=== PATIENT | male | born 1970 | race Caucasian/White ===

== ENCOUNTER 2017-09-09 11:00 | Day surgery (SDC) | payer BC ==
[2017-09-08 10:12] VITALS: BMI 46.0
[~2017-09-09 11:00] MED LIST: LACTATED RINGERS 1,000 ML IV SCH; LIDOCAINE 1% 20 ML VIAL (10MG/ML) FOR IV START INTRADERMA PRN
[2017-09-09 11:25] VITALS: TEMP 97.3
[2017-09-09] MEDS ORDERED: LIDOCAINE 1% INJ 10MG/ML (20 ML MDV) ONE (11:29)
[2017-09-09] MEDS ORDERED: PROPOFOL 10 MG/ML 20 ML VIAL IV ONE (11:29)
[2017-09-09] MEDS ORDERED: GLYCOPYRROLATE 0.2 MG/ML 2 ML VIAL ONE (11:29)
[2017-09-09] MEDS ORDERED: fentaNYL (PF) 50 MCG/ML 2 ML AMP ONE (11:29)
[2017-09-09] MEDS ORDERED: MIDAZOLAM 2 MG/2 ML VIAL ONE (11:29)
--- NOTE | 2017-09-09 11:32 | P.GSHP ---
History of Present Illness H&P Date: 09/09/17 Chief Complaint: GERD, presurgical Patient here today for upper endoscopy. The patient has a history of reflux. Tentatively scheduled for sleeve gastrectomy in the next several weeks. No dysphagia. Past Medical History Past Medical History: GERD/Reflux, Hyperlipidemia Additional Past Medical History / Comment(s): occ irregular heartbeat, History of Any Multi-Drug Resistant Organisms: None Reported Past Surgical History: Adenoidectomy, Orthopedic Surgery, Tonsillectomy Additional Past Surgical History / Comment(s): left ring finger surgery, oral surgery Past Anesthesia/Blood Transfusion Reactions: Motion Sickness, Postoperative Nausea & Vomiting (PONV) Smoking Status: Never smoker - Past Family History Father Family Medical History: Cancer Medications and Allergies Home Medications Medication Instructions Recorded Confirmed Type Lansoprazole [Prevacid] 30 mg PO DAILY 04/05/17 09/08/17 History Olopatadine HCl [Patanase] 2 puff NASAL DAILY 04/05/17 09/08/17 History Atorvastatin [Lipitor] 10 mg PO HS 09/08/17 09/08/17 History Allergies Allergy/AdvReac Type Severity Reaction Status Date / Time acetaminophen [From Vicodin] AdvReac Nausea Verified 09/09/17 11:21 hydrocodone [From Vicodin] AdvReac Nausea Verified 09/09/17 11:21 Surgical - Exam Vital Signs Temp Pulse BP Pulse Ox 97.3 F L 99 137/93 96 09/09/17 11:23 09/09/17 11:23 09/09/17 11:23 09/09/17 11:23 Physical exam: General: Well-developed, well-nourished HEENT: Normocephalic, sclerae nonicteric Abdomen: Nontender, nondistended Extremities: No edema Neuro: Alert and oriented Assessment and Plan (1) GERD (gastroesophageal reflux disease) Narrative/Plan: Will proceed with upper endoscopy at this time. Current Visit: Yes Status: Acute Code(s): K21.9 - GASTRO-ESOPHAGEAL REFLUX DISEASE WITHOUT ESOPHAGITIS SNOMED Code(s): 970886787
--- NOTE | 2017-09-09 11:39 | P.PCN ---
Date of Procedure: 09/09/17 Procedure(s) Performed: Preoperative Dx: GERD, presurgical Postoperative Dx: Mild gastritis Procedure: EGD with Bx Anesthesia: Sedation Endoscopist: Dr. Duran Specimens: Antrum Endoscopic Procedure: The patient was on the endoscopy table in the left decubitus position. The Olympus gastroscope was inserted into the oropharynx and passed under direct visualization to the region of the third portion of the duodenum. From that point the scope was slowly withdrawn inspecting all surfaces carefully. There were no neoplastic inflammatory or polypoid lesions throughout the duodenum. The pylorus was widely patent. The stomach was carefully inspected. There was mild gastritis present. A biopsy of the antrum took place to rule out H. pylori. Retroflexion revealed a normal hiatus. The esophagus was then carefully examined. There were no neoplastic inflammatory or polypoid lesions throughout the visualized esophagus. The patient was then taken to the recovery room in stable condition per anesthesia guidelines. Recommendations: Continue antiacids. Await biopsy results. Follow up in the bariatric clinic in 2 weeks.
[2017-09-09 11:46] VITALS: RESP 18
[2017-09-09 12:03] VITALS: BP 123/74; PULSE 90
== END 2017-09-09 12:33 | disposition home or self-care (01) ==
LOC: ORWHC2ENDO 11:00
PROVIDERS: ATTEND Surgery
DX: K29.70 Gastritis, unspecified, without bleeding (principal); K21.9 Gastro-esophageal reflux disease without esophagitis; E78.5 Hyperlipidemia, unspecified; G47.33 Obstructive sleep apnea (adult) (pediatric); Z79.899 Other long term (current) drug therapy
CPT/HCPCS: 88305; 43239; J2250; J2001; J3010; J2704

== ENCOUNTER → 2017-09-12 | Outpatient (CLI) | payer BC ==
[2017-09-12 15:24] VITALS: BMI 46.0
== END ==
LOC: BARWHC3 08:06
PROVIDERS: ATTEND Surgery
DX: E66.01 Morbid (severe) obesity due to excess calories (principal)
CPT/HCPCS: 97804

== ENCOUNTER → 2017-09-20 | Outpatient (CLI) | payer BC ==
[2017-09-20 14:11] VITALS: RESP 16; BMI 45.2
--- NOTE | 2017-09-20 16:46 | P.BASOAP ---
Subjective Progress Note Date: 09/20/17 Principal diagnosis: Morbid obesity Patient doing well today. Underwent recent upper endoscopy as a preoperative study. Still with reflux. Denies vomiting. He is hoping to have his sleep gastrectomy scheduled him the next 3-5 weeks. Objective - Vital Signs Vital signs: Vital Signs Temp Pulse Resp 16 09/20/17 13:54 BP Pulse Ox Intake & Output 09/19/17 09/20/17 09/20/17 18:59 06:59 18:59 Weight 132.903 kg - Exam Abdomen: Soft, nontender, nondistended Assessment/Plan (1) Morbid obesity Narrative/Plan: Recent upper endoscopy reviewed. Patient appears to be ready to schedule his sleeve gastrectomy. Surgical consent form and the associated risks were reviewed in detail again today. All questions answered. We'll provided date to the patient in the next few days. Plan: Date: 09/20/17 Initial Weight: 129.387 kg Initial BMI: 44.0 Current Weight: 132.903 kg Current BMI: 45.2 Type of Surgery: Total Volume in Band: Previous Volume: Volume Removed: Volume Added: Band Size:
== END | disposition home or self-care (01) ==
LOC: BARWHC3 13:19
PROVIDERS: ATTEND Surgery
DX: E66.01 Morbid (severe) obesity due to excess calories (principal); Z68.42 Body mass index [BMI] 45.0-49.9, adult; Z71.3 Dietary counseling and surveillance
CPT/HCPCS: 99211

== ENCOUNTER 2017-10-31 10:47 | Inpatient (IN) | payer BC ==
[~2017-10-31 10:47] MED LIST changes: +DEXAMETHASONE SOD PHOSPHATE 10 MG/ML 1 ML VIAL IV ONE; +ENOXAPARIN 40 MG/0.4 ML SYRINGE SQ ONE; -LACTATED RINGERS 1,000 ML IV SCH; +MIDAZOLAM 2 MG/2 ML VIAL IV PRN; +ONDANSETRON ODT 4 MG TAB PO ONE; +SCOPOLAMINE 1.5MG/72HR PATCH TRANSDERM ONE; +fentaNYL (PF) 50 MCG/ML 2 ML AMP IV PRN
[2017-10-31] MEDS: LACTATED RINGERS 1,000 ML IV SCH (11:45)
--- NOTE | 2017-10-31 13:26 | P.ONQ ---
Anesthesiology Proc Note - PNB - Peripheral Nerve Block Performed Bilateral Transversus Abdominis Single Time Out Performed: Yes Procedure Start Time: 12:46 Procedure Stop Time: 13:01 Indication: Acute Post-Operative Pain, Requested by physician Sedation Type: Sedate with meaningful contact maintained Preparation: Sterile Prep Position: Supine Needle Size: 100mm (4") Needle Gauge: 21 Technique: Ultrasound Injectate: 0.5% Ropivacaine (see comment for volume) (ropi .5% 15cc each side) Blood Aspirated: No Pain Paresthesia on Injection Noted: No Resistance on Injection: Normal Events: Uneventful and Well Tolerated
--- NOTE | 2017-10-31 13:53 | P.GSHP ---
History of Present Illness H&P Date: 10/31/17 Chief Complaint: morbid obesity Patient on our service. Interested in sleeve gastrectomy. Initially started seeing the patient last March. Recently had an upper endoscopy which showed mild gastritis. Patient has mild reflux. Symptoms are controlled with Prevacid. Denies any history of difficult swallowing or DVT. Not interested in lap band or gastric bypass. Patient is a nonsmoker. Past Medical History Past Medical History: GERD/Reflux, Hyperlipidemia Additional Past Medical History / Comment(s): Occ irregular heartbeat, NO TX REQUIRED. History of Any Multi-Drug Resistant Organisms: None Reported Past Surgical History: Adenoidectomy, Orthopedic Surgery, Tonsillectomy Additional Past Surgical History / Comment(s): left ring finger surgery, oral surgery. EGD. Past Anesthesia/Blood Transfusion Reactions: Motion Sickness, Postoperative Nausea & Vomiting (PONV) Smoking Status: Never smoker - Past Family History Father Family Medical History: Cancer Medications and Allergies Home Medications Medication Instructions Recorded Confirmed Type Lansoprazole [Prevacid] 30 mg PO DAILY 04/05/17 10/31/17 History Olopatadine HCl [Patanase] 2 puff NASAL DAILY 04/05/17 10/31/17 History Atorvastatin [Lipitor] 10 mg PO HS 09/08/17 10/31/17 History Allergies Allergy/AdvReac Type Severity Reaction Status Date / Time hydrocodone [From Vicodin] AdvReac Nausea Verified 10/24/17 17:59 Surgical - Exam Vital Signs Temp Pulse Resp BP Pulse Ox 98.2 F 85 16 117/79 97 10/31/17 11:39 10/31/17 11:39 10/31/17 11:39 10/31/17 11:39 10/31/17 11:39 Physical exam: General: Well-developed, well-nourished HEENT: Normocephalic, sclerae nonicteric Abdomen: Nontender, nondistended Extremities: No edema Neuro: Alert and oriented Assessment and Plan (1) Morbid obesity Narrative/Plan: Will proceed with sleeve gastrectomy at this time. The risks of bleeding, infection, stenosis, stricture, leak, abscess, fistula formation, peritonitis, poor weight loss, reflux, vomiting, conversion to an open procedure, aborting sleeve gastrectomy, IA, PE, DVT, and were discussed. The patient understands and wishes to proceed. Current Visit: No Status: Acute Code(s): E66.01 - MORBID (SEVERE) OBESITY DUE TO EXCESS CALORIES SNOMED Code(s): 071412891
[2017-10-31] MEDS ORDERED: fentaNYL (PF) 50 MCG/ML 2 ML AMP ONE (14:02)
[2017-10-31] MEDS ORDERED: LIDOCAINE 1% INJ 10MG/ML (20 ML MDV) ONE (14:02)
[2017-10-31] MEDS ORDERED: PROPOFOL 10 MG/ML 20 ML VIAL IV ONE (14:02)
[2017-10-31] MEDS ORDERED: SUCCINYLCHOLINE CHLORIDE VIAL 200 MG/10 ML VIAL IV ONE (14:02)
[2017-10-31] MEDS ORDERED: ROPIVACAINE 5 MG/ML 30 ML VIAL ONE (14:02)
[2017-10-31] MEDS ORDERED: GLYCOPYRROLATE 0.2 MG/ML 2 ML VIAL ONE (14:02)
[2017-10-31] MEDS ORDERED: VECURONIUM 10 MG VIAL IV ONE (14:02)
[2017-10-31] MEDS ORDERED: NEOSTIGMINE 1 MG/ML 10 ML VIAL ONE (14:02)
[2017-10-31] MEDS ORDERED: MIDAZOLAM 2 MG/2 ML VIAL ONE (14:02)
[2017-10-31] MEDS ORDERED: LACTATED RINGERS 1,000 ML IV ONE (14:39)
[2017-10-31] MEDS ORDERED: BUPIVACAINE (PF) 0.25% 30 ML VIAL SQ ONE ×2 (14:45)
[2017-10-31] MEDS ORDERED: diphenhydrAMINE 50 MG/ML 1 ML VIAL IVP PRN (15:59)
[2017-10-31] MEDS ORDERED: ACETAMINOPHEN IV (For NPO) 1,000 MG in EMPTY BAG 1 BAG IVPB ONE (15:59)
[2017-10-31] MEDS ORDERED: NALOXONE 0.4 MG/ML 1 ML VIAL IV PRN (15:59)
[2017-10-31] MEDS ORDERED: MORPHINE SULFATE 4 MG/0.8 ML SYRINGE (INJ) IVP PRN (15:59)
--- NOTE | 2017-10-31 16:03 | P.OP ---
Date of Procedure: 10/31/17 Procedure(s) Performed: PREOPERATIVE DIAGNOSIS: Morbid obesity, GERD, hyperlipidemia POSTOPERATIVE DIAGNOSIS: Same PROCEDURE: Laparoscopic sleeve gastrectomy SURGEON: Renee EBL: Minimal ANESTHESIA: General COMPLICATIONS: None OPERATIVE PROCEDURE: Patient was placed in the operating table in the supine position. He was placed under general anesthesia at that time. The abdomen was prepped and draped in sterile fashion after the patient was placed in lithotomy. A 5 mm optical trocar was used to enter the abdominal cavity in the left upper quadrant. Insufflation took place to 15 millimeters mercury. An additional right subxiphoid 5 mm trocar was then placed under direct visualization and then removed. 2 additional 5 mm trochars were placed in the right upper quadrant and left upper quadrant under direct visualization and a 15 mm trocar in the supraumbilical location. The liver was retracted using a medium Miguel liver retractor through the right subxiphoid trocar site. The hiatus was inspected. The patient had no visible hiatal hernia At that point I moved to the mid aspect of the greater curvature the stomach. The short gastric vasculature was divided using a LigaSure device proximally. I then switched and divided the short gastrics distally to a 4 cm from the pylorus. The dissection took place up to the left diaphragmatic crura at that point. The posterior short gastrics were likewise divided using the LigaSure device. Once the stomach was fully mobilized the blunt tipped 40-Finnish bougie dilator was advanced into the stomach and advanced all the way to the prepyloric location. A black echelon 60 stapler was utilized and fired tangentially across the antrum taking care to avoid narrowing at the incisura angularis. Subsequent firings of the stapler took place. The second stapler used was a additional black load 60 with seam guard. A total of 3 green echelon 60 staplers with seam guard took place proximally staying on the outer edge of our dilator. Once we reached the most proximal portion of the stomach a single firing of the gold echelon 60 stapler without seen guard took place. The oral gastric tube was reinserted. The stomach was insufflated with approximately 100 mL of methylene blue. No evidence of leak or obstruction was seen. The distal aspect of the sleeve was then reapproximated to the gastrosplenic and gastrocolic ligament using a short running 2-0 strata fix suture. This was done to prevent kinking or twisting of the sleeve. Tisseel fibrin glue was used along the entire staple line. No evidence of bleeding was seen. The stomach remnant was removed from the 15 mm trocar site without difficulty. The fascia at the 15 more site was closed using interrupted 0 Vicryl sutures with the laparoscopic suture passer and Dante Amarilis technique. The insufflation was evacuated. The skin at all 5 incisions were closed using 4-0 Monocryl sutures. Steri-Strips and sterile dressings were then applied. DISPOSITION: Stable to recovery room
[2017-10-31] MEDS ORDERED: PROMETHAZINE INJ 25 MG/ML 1 ML VIAL IVPB ONE (16:07)
[2017-10-31] MEDS: MORPHINE SULFATE 2 MG/ML SYRINGE IV PRN ×5 (16:21→17:10)
[2017-10-31] MEDS ORDERED: diphenhydrAMINE 50 MG/ML 1 ML VIAL IVP ONE (16:40)
[2017-10-31] MEDS: ALBUTEROL NEBULIZED 2.5 MG/3 ML INHALATION SCH ×2 (17:03→19:16)
[2017-10-31] MEDS ORDERED: SODIUM CHLORIDE 0.9% 1,000 ML IV ONE (17:26)
[2017-10-31] MEDS: HYOSCYAMINE ORAL DROPS 1.875 MG/15 ML BOTTLE PO PRN (18:37)
[2017-10-31] MEDS: SIMETHICONE 40 MG/0.6 ML DROPS 2,000 MG/30 ML BOTTLE PO PRN (18:37)
[2017-10-31 19:08] VITALS: BMI 43.3
--- NOTE | 2017-10-31 19:41 | CONS ---
CONSULTATION REASON FOR CONSULTATION: Advice regarding GERD and other medical issues requested by surgery, Dr. Duran. HISTORY OF PRESENT ILLNESS: This 47-year-old gentleman with a past medical history of GERD, hyperlipidemia, apparently being followed by primary physician primary in [place], in the outpatient setting underwent laparoscopic sleeve gastrectomy for morbid obesity, GERD, hyperlipidemia, by Dr. Duran. The patient tolerated the procedure. The patient is slightly drowsy at this time. There is no history any headache, loss of conscious or seizures. The patient is complaining of some postoperative chest pain at this time. Otherwise no history of headache, loss of consciousness, seizures. PAST MEDICAL HISTORY: GERD, hyperlipidemia. MEDICATIONS: Prior to admission home medications are: 1. Patanase 2 sprays daily. 2. Prevacid 30 mg daily. 3. Lipitor 10 mg. ALLERGIES: VICODIN. FAMILY HISTORY: History of cancer in the family. SOCIAL HISTORY: No history of smoking. Occasional alcohol intake. REVIEW OF SYSTEMS: ENT: No diminished vision. No diminished hearing. CARDIOVASCULAR: No angina or palpitations. Respiration: No cough or hemoptysis. GI as mentioned earlier. : No dysuria. No retention. NERVOUS SYSTEM: No numbness or weakness. Allergy/Immunology: No asthma or hayfever. MUSCULOSKELETAL: As mentioned earlier. Hematology/Oncology: No history of anemia. Endocrine: No history of diabetes. CONSTITUTIONAL: As mentioned earlier. Dermatology: Negative. Rheumatology: Negative. Psychiatric: As mentioned earlier. PHYSICAL EXAMINATION: Alert and oriented times three. Pulse 83,blood pressure 151/70, respiration 20, temperature 97 degrees, pulse ox 97% on 8 L. HEENT: Conjunctivae normal. Oral mucosa moist. Neck is no jugular venous distention. No carotid bruit. No lymph node enlargement. Cardiovascular: S1-S2 muffled. Respiratory: Breath sounds diminished in the bases. No rhonchi. No crackles. ABDOMEN: Soft, obese, status post surgery. No mass palpable. Legs: No edema. No swelling. NERVOUS SYSTEM: Higher functions as mentioned earlier. Moves all four extremities. No focal deficits. Lymphatics: No lymph nodes palpable in the neck, axillae or groin. SKIN: No ulcer, rashes or bleeding. LABS: The patient's labs are not available. ASSESSMENT: 1. Status post laparoscopic sleeve gastrectomy for morbid obesity, gastroesophageal reflux disease and hyperlipidemia. 2. Obesity. 3. Gastroesophageal reflux disease. 4. Hyperlipidemia. 5. History of degenerative joint disease. RECOMMENDATIONS AND DISCUSSION: In this 47-year-old gentleman who presented with multiple complex medical issues, we will monitor the patient closely. Continue the current medications. I would recommend resume the home medications when the patient is p.o. Otherwise, incentive spirometry and as well as DVT prophylaxis. The patient had postoperative lower chest pains, which is expected. Otherwise, we will continue to monitor. Further recommendations to follow. MMODL / IJN: [id number] /
[2017-10-31] MEDS: 0.9% NACL WITH KCL 20 MEQ/L 1,000 ML IV SCH (23:00)
[2017-11-01] MEDS: SIMETHICONE 40 MG/0.6 ML DROPS 2,000 MG/30 ML BOTTLE PO PRN (05:56)
[2017-11-01] MEDS: HYOSCYAMINE ORAL DROPS 1.875 MG/15 ML BOTTLE PO PRN (05:57)
[2017-11-01] MEDS: ALBUTEROL NEBULIZED 2.5 MG/3 ML INHALATION SCH ×4 (07:22→19:42)
[2017-11-01 07:32] LABS: Basophils % (A) 0 %; Eosinophils # (A) 0.1 k/uL (0-0.7); Eosinophils % (A) 1 %; HCT 42.2 % (39.0-53.0); HGB 13.9 gm/dL (13.0-17.5); Lymphocytes # (A) 1.3 k/uL (1.0-4.8); Lymphocytes % (A) 11 %; MCH 30.2 pg (25.0-35.0); MCV 91.4 fL (80.0-100.0); Monocytes # (A) 0.6 k/uL (0-1.0); Monocytes % (A) 5 %; Neutrophils # (A) 10.1 k/uL (1.3-7.7); Neutrophils % (A) 84 %; Platelet Count 306 k/uL (150-450); RBC 4.62 m/uL (4.30-5.90); RDW 13.8 % (11.5-15.5); WBC 12.1 k/uL (3.8-10.6)
[2017-11-01 08:08] LABS: Anion Gap 17 mmol/L; Blood Urea Nitrogen 10 mg/dL (9-20); Calcium 8.9 mg/dL (8.4-10.2); Carbon Dioxide 21 mmol/L (22-30); Chloride 102 mmol/L (98-107); Phosphorus 3.5 mg/dL (2.5-4.5); Potassium 4.8 mmol/L (3.5-5.1); Sodium 140 mmol/L (137-145)
[2017-11-01] MEDS: 0.9% NACL WITH KCL 20 MEQ/L 1,000 ML IV SCH ×2 (08:13→08:16)
[2017-11-01] MEDS: KETOROLAC 30 MG/ML 1 ML VIAL IVP SCH ×3 (08:14→21:04)
[2017-11-01] MEDS: LACTATED RINGERS 1,000 ML IV SCH (08:16)
[2017-11-01] MEDS: 1: MVI, ADULT NO.4 WITH VIT K 10 ML, THIAMINE 100 MG, FOLIC ACID 1 MG, POTASSIUM CHLORID IV SCH ×18 (08:16→21:06)
[2017-11-01] MEDS: ENOXAPARIN 40 MG/0.4 ML SYRINGE SQ SCH ×2 (08:17→21:05)
[2017-11-01] MEDS: AZELASTINE 137MCG/SPRAY NASAL SCH (08:17)
[2017-11-01] MEDS: PANTOPRAZOLE 40 MG TABLET PO SCH ×2 (08:18→09:27)
[2017-11-01] MEDS: ONDANSETRON 4 MG/2 ML VIAL IVP PRN ×2 (08:33→21:05)
[2017-11-01] MEDS ORDERED: PANTOPRAZOLE 40 MG/10 ML VIAL IV SCH (09:00)
--- NOTE | 2017-11-01 11:11 | FL ---
EXAMINATION TYPE: FL UGI DATE OF EXAM: 11/01/2017 LIMITED UGI: CLINICAL HISTORY: Morbid Obesity, gastric sleeve surgery yesterday. TECHNIQUE: Limited esophagram is performed utilizing 50 oz of Isovue-370. A total of 54 seconds of f luoroscopic time was utilized during procedure. 20 spot images were saved. COMPARISON: None. FINDINGS: The patient swallowed contrast without difficulty or delay. Esophageal peristalsis and mo tility are within normal limits. There is good flow of contrast along the diaphragmatic hiatus into proximal stomach and mild delay of proximal anastomosis into gastric sleeve. There is mild to moderat e Delay from gastric sleeve through distal anastomosis into pyloric remnant and duodenal sweep . Manjula ent remains asymptomatic. There is no evidence of contrast extravasation to suggest leak. IMPRESSION: No evidence of leak or significant obstruction status post recent gastric sleeve yesterda y.
--- NOTE | 2017-11-01 15:02 | P.PN ---
Subjective Progress Note Date: 11/01/17 Principal diagnosis: Morbid obesity Patient doing well today. Mild nausea this morning although that's improved. Today's upper GI shows no evidence of leak or obstruction. He is afebrile. White blood cell count slightly elevated. Objective - Vital Signs Vital signs: Vital Signs Temp 98.5 F 11/01/17 14:33 Pulse 61 11/01/17 14:33 Resp 16 11/01/17 14:33 BP 112/69 11/01/17 14:33 Pulse Ox 95 11/01/17 14:33 Intake & Output 10/31/17 11/01/17 11/01/17 18:59 06:59 18:59 Intake Total 2049 Output Total 160 Balance 1889 Weight 125.554 kg 125.554 kg Intake: IV 2049 Output: Urine 150 Estimated Blood Loss 10 Other: Voiding Method Toilet # Voids 1 1 - Exam Abdomen: Soft, nondistended, mild incisional tenderness, dressings clean and dry - Labs CBC & Chem 7: 11/01/17 06:55 11/01/17 06:55 Labs: Abnormal Lab Results - Last 24 Hours (Table) 11/01/17 11/01/17 Range/Units 06:55 06:55 WBC 12.1 H (3.8-10.6) k/uL Neutrophils # 10.1 H (1.3-7.7) k/uL Carbon Dioxide 21 L (22-30) mmol/L Assessment and Plan (1) Morbid obesity Narrative/Plan: Continue bariatric liquids. Repeat CBC tomorrow. Monitor tachycardia. Ambulate. Current Visit: Yes Status: Acute Code(s): E66.01 - MORBID (SEVERE) OBESITY DUE TO EXCESS CALORIES SNOMED Code(s): 737845008
[2017-11-01] MEDS: ATORVASTATIN 10 MG TAB PO SCH ×2 (21:05→21:11)
--- NOTE | 2017-11-01 21:32 | PN ---
PROGRESS NOTE DATE OF SERVICE: 11/01/2017. INTERVAL HISTORY: This 47-year-old gentleman who was admitted after laparoscopic sleeve gastrectomy is improving significantly. No chest pain. No palpitations. No fever. PHYSICAL EXAM: Alert and oriented times three. Pulse 61, blood pressure 112/69, respirations 16, temp 98.4, pulse ox 94% on room air. HEENT conjunctivae normal. Oral mucosa moist. Neck is no jugular venous distention. No carotid bruit. No lymph node enlargement. Cardiovascular system: S1, S2, no S3, no S4. RESPIRATORY: Breath sounds diminished in the bases. Scattered rhonchi. ABDOMEN: Soft, status post surgery. Legs are no edema, no swelling. LAB STUDIES: Hemoglobin 13.9. ASSESSMENT: 1. Status post laparoscopic sleeve gastrectomy for morbid obesity, gastroesophageal reflux disease, and hyperlipidemia. 2. Obesity. 3. Gastroesophageal reflux disease. 4. Hyperlipidemia. 5. History of degenerative joint disease. RECOMMENDATIONS AND DISCUSSION: Continue current medications, management and symptomatic treatment. Incentive spirometry. Increase ambulation. DVT prophylaxis. Further recommendations per surgery. Further recommendations to follow. MMODL / IJN: [id number] /
[2017-11-02] MEDS: KETOROLAC 30 MG/ML 1 ML VIAL IVP SCH ×3 (02:54→12:52)
[2017-11-02] MEDS: 0.9% NACL WITH KCL 20 MEQ/L 1,000 ML IV SCH ×3 (03:21→13:33)
[2017-11-02] MEDS: 1: MVI, ADULT NO.4 WITH VIT K 10 ML, THIAMINE 100 MG, FOLIC ACID 1 MG, POTASSIUM CHLORID IV SCH ×18 (06:31→16:15)
[2017-11-02] MEDS: LACTATED RINGERS 1,000 ML IV SCH (06:32)
[2017-11-02] MEDS: ALBUTEROL NEBULIZED 2.5 MG/3 ML INHALATION SCH ×3 (07:12→20:21)
[2017-11-02 07:22] LABS: Basophils % (A) 0 %; Eosinophils # (A) 0.1 k/uL (0-0.7); Eosinophils % (A) 1 %; HCT 39.9 % (39.0-53.0); HGB 13.9 gm/dL (13.0-17.5); Lymphocytes # (A) 1.6 k/uL (1.0-4.8); Lymphocytes % (A) 20 %; MCH 31.4 pg (25.0-35.0); MCHC 34.8 g/dL (31.0-37.0); MCV 90.2 fL (80.0-100.0); Mean Platelet Volume 6.7; Monocytes # (A) 0.4 k/uL (0-1.0); Monocytes % (A) 4 %; Neutrophils # (A) 5.9 k/uL (1.3-7.7); Neutrophils % (A) 74 %; Platelet Count 256 k/uL (150-450); RBC 4.42 m/uL (4.30-5.90); RDW 13.9 % (11.5-15.5)
[2017-11-02 07:37] LABS: Anion Gap 15 mmol/L; Blood Urea Nitrogen 7 mg/dL (9-20); Calcium 9.1 mg/dL (8.4-10.2); Carbon Dioxide 21 mmol/L (22-30); Chloride 105 mmol/L (98-107); Glucose 77 mg/dL (74-99); Potassium 4.5 mmol/L (3.5-5.1); Sodium 141 mmol/L (137-145)
[2017-11-02] MEDS ORDERED: BISACODYL 5 MG TABLET.DR PO PRN (08:00)
[2017-11-02 09:07] VITALS: RESP 16
[2017-11-02] MEDS: PANTOPRAZOLE 40 MG TABLET PO SCH (09:07)
[2017-11-02] MEDS: ENOXAPARIN 40 MG/0.4 ML SYRINGE SQ SCH (09:07)
--- NOTE | 2017-11-02 10:11 | P.PN ---
Subjective Progress Note Date: 11/02/17 Principal diagnosis: Morbid obesity Patient doing well today. Denies pain. No nausea. Tolerating liquids. He's had about 8 ounces so far this morning. He is hoping to go home later today. White blood cell count normal. Objective - Vital Signs Vital signs: Vital Signs Temp 97.7 F 11/02/17 09:06 Pulse 78 11/02/17 09:06 Resp 16 11/02/17 09:17 BP 116/68 11/02/17 09:06 Pulse Ox 94 L 11/02/17 09:06 Intake & Output 11/01/17 11/02/17 11/02/17 18:59 06:59 18:59 Weight 125.554 kg Other: Voiding Method Toilet Toilet Toilet # Voids 1 2 - Exam Abdomen: Soft, nondistended, mild incisional tenderness, incisions clean and dry - Labs CBC & Chem 7: 11/02/17 06:44 11/02/17 06:44 Labs: Abnormal Lab Results - Last 24 Hours (Table) 11/02/17 Range/Units 06:44 Carbon Dioxide 21 L (22-30) mmol/L BUN 7 L (9-20) mg/dL Assessment and Plan (1) Morbid obesity Narrative/Plan: Continue bariatric liquids. Increase protein amount. Probable discharge later today Current Visit: Yes Status: Acute Code(s): E66.01 - MORBID (SEVERE) OBESITY DUE TO EXCESS CALORIES SNOMED Code(s): 526602224
[2017-11-02] MEDS: AZELASTINE 137MCG/SPRAY NASAL SCH (12:56)
[2017-11-02 14:34] VITALS: BP 118/70; PULSE 81; TEMP 97.1
--- NOTE | 2017-11-02 21:21 | PN ---
PROGRESS NOTE DATE OF SERVICE: 11/02/2017 This 47-year-old gentleman was admitted after laparoscopic sleeve gastrectomy, is improving significantly. No chest pain. No palpitations. No fever. EXAM: Alert and oriented x3. Pulse 81, blood pressure 118/70, respirations 16, temperature 97.2, pulse ox 97% on room air. HEENT: Conjunctivae normal. NECK: No jugular venous distention. CARDIOVASCULAR: S1, S2 muffled. RESPIRATORY: Breath sounds diminished in the bases. No rhonchi. No crackles. ABDOMEN: Soft, nontender. LEGS: No edema. No swelling. NERVOUS SYSTEM: No focal deficits. LABS: CBC within normal limits. ASSESSMENT: 1. Status post laparoscopic sleeve gastrectomy for morbid obesity. 2. Gastroesophageal reflux disease. 3. Hyperlipidemia. 4. Obesity. 5. History of degenerative joint disease. RECOMMENDATIONS AND DISCUSSION: Continue current medical management and continue symptomatic treatment, incentive spirometry. Resume the home medications. DVT prophylaxis. The rest of the recommendations per Surgery and closely follow in outpatient setting. Further recommendations to follow. MMODL / IJN: [id number] /
== END 2017-11-02 19:30 | disposition home or self-care (01) | DRG 621 ==
LOC: 2ORMAIN 10:47 → 3SUR 16:21
PROVIDERS: ADMIT Surgery; ATTEND Surgery
PROC: 0DB64Z3 Excision of Stomach, Percutaneous Endoscopic Approach, Vertical (ICD-10-PCS; principal; 2017-10-31 13:00)
DX: E66.01 Morbid (severe) obesity due to excess calories (principal); E78.5 Hyperlipidemia, unspecified; K21.9 Gastro-esophageal reflux disease without esophagitis; K29.70 Gastritis, unspecified, without bleeding; M19.90 Unspecified osteoarthritis, unspecified site; Z90.89 Acquired absence of other organs; Z79.899 Other long term (current) drug therapy; Z88.6 Allergy status to analgesic agent; Z80.9 Family history of malignant neoplasm, unspecified; Z68.41 Body mass index [BMI] 40.0-44.9, adult
CPT/HCPCS: 74240; 80048; 80051; 82310; 82565; 83735; 84100; 84520; 85025; 88307; 94640; 94760

== ENCOUNTER → 2017-11-11 | Outpatient (CLI) | payer BC ==
[2017-11-11 10:14] VITALS: BP 130/67; PULSE 80; RESP 15; TEMP 97.7; BMI 41.3
--- NOTE | 2017-11-11 10:45 | P.BASOAP ---
Subjective Progress Note Date: 11/11/17 Principal diagnosis: Morbid obesity Patient doing well today. No nausea or vomiting. No reflux. 10 pounds Weight Loss since Surgery. Tolerating 64 Ounces of Liquids. 60-90 G of Protein Daily. He Was Not Taking His Prevacid. Objective - Vital Signs Vital signs: Vital Signs Temp 97.7 F 11/11/17 10:04 Pulse 80 11/11/17 10:04 Resp 15 11/11/17 10:04 BP 130/67 11/11/17 10:04 Pulse Ox Intake & Output 11/10/17 11/11/17 11/11/17 18:59 06:59 18:59 Weight 121.472 kg - Exam Abdomen: Soft, nondistended, incision clean and dry Assessment/Plan (1) Morbid obesity Narrative/Plan: Will resume Prevacid. Continue protein and liquid intake. Follow-up 2-3 weeks for reevaluation. Plan: Date: 11/11/17 Initial Weight: 129.387 kg Initial BMI: 44.0 Current Weight: 121.472 kg Current BMI: 41.3 Type of Surgery: Total Volume in Band: Previous Volume: Volume Removed: Volume Added: Band Size:
== END | disposition home or self-care (01) ==
LOC: BARWHC3 09:30
PROVIDERS: ATTEND Surgery
DX: E66.01 Morbid (severe) obesity due to excess calories (principal); Z68.41 Body mass index [BMI] 40.0-44.9, adult
CPT/HCPCS: 99211

== ENCOUNTER → 2018-01-31 | Outpatient (CLI) | payer BC ==
[2018-01-31 14:16] VITALS: BP 114/78; PULSE 81; TEMP 98.2; BMI 36.1
--- NOTE | 2018-01-31 14:40 | P.BASOAP ---
Subjective Progress Note Date: 01/31/18 Principal diagnosis: Morbid obesity Patient has had poor follow-up. Patient missed one of his appointments because of a kidney stone. 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 He is doing well however. He has lost approximately 33 pounds since his last visit. He is due for one month in 3 months labs at this time. Denies heartburn. Still taking his Prevacid. Denies pain. Objective - Vital Signs Vital signs: Vital Signs Temp 98.2 F 01/31/18 14:11 Pulse 81 01/31/18 14:11 Resp BP 114/78 01/31/18 14:11 Pulse Ox Intake & Output 01/30/18 01/31/18 01/31/18 18:59 06:59 18:59 Weight 106.367 kg - Exam Abdomen: Soft, nontender, nondistended Assessment/Plan (1) Morbid obesity Narrative/Plan: Patient doing well at this time. Continue antiacid therapy. We'll check three- month lab work at this time. We'll see dietary today. Follow-up 6 weeks. Plan: Date: 01/31/18 Initial Weight: 129.387 kg Initial BMI: 44.0 Current Weight: 106.367 kg Current BMI: 36.1 Type of Surgery: Total Volume in Band: Previous Volume: Volume Removed: Volume Added: Band Size:
== END | disposition home or self-care (01) ==
LOC: BARWHC3 13:51
PROVIDERS: ATTEND Surgery
DX: E66.01 Morbid (severe) obesity due to excess calories (principal); Z68.36 Body mass index [BMI] 36.0-36.9, adult
CPT/HCPCS: 97803; 99211

== ENCOUNTER → 2018-04-04 | Outpatient (CLI) | payer BC ==
[2018-04-04 14:53] VITALS: BP 111/67; PULSE 72; RESP 16; TEMP 97.5; BMI 34.4
--- NOTE | 2018-04-04 15:42 | P.BASOAP ---
Subjective Progress Note Date: 04/04/18 Principal diagnosis: Morbid obesity Patient returns today for follow-up. Still slightly poor frequency of follow- up however the patient is doing quite well. He has lost 11 pounds since his last visit. He just had his lab work performed on March 10. Those labs were reviewed and appear normal. He has lost over 60 pounds thus far. Remains on a PPI. No reflux. No vomiting. Denies pain. Objective - Vital Signs Vital signs: Vital Signs Temp 97.5 F L 04/04/18 14:40 Pulse 72 04/04/18 14:40 Resp 16 04/04/18 14:40 BP 111/67 04/04/18 14:40 Pulse Ox Intake & Output 04/03/18 04/04/18 04/04/18 18:59 06:59 18:59 Weight 101.151 kg - Exam Abdomen: Soft, nontender, nondistended Assessment/Plan (1) Morbid obesity Narrative/Plan: Continue dietary and exercise regimen. Follow-up 2 months in clinic. Start alternating PPIs every other day. Plan: Date: 04/04/18 Initial Weight: 129.387 kg Initial BMI: 44.0 Current Weight: 101.151 kg Current BMI: 34.4 Type of Surgery: Total Volume in Band: Previous Volume: Volume Removed: Volume Added: Band Size:
== END ==
LOC: BARWHC3 14:01
PROVIDERS: ATTEND Surgery
DX: E66.01 Morbid (severe) obesity due to excess calories (principal); Z68.34 Body mass index [BMI] 34.0-34.9, adult
CPT/HCPCS: 97803; 99211

== ENCOUNTER → 2018-06-20 | Outpatient (CLI) | payer BC ==
[2018-06-20 13:23] VITALS: BP 113/75; PULSE 65; TEMP 97.4; BMI 34.0
--- NOTE | 2018-06-20 14:36 | P.BASOAP ---
Subjective Progress Note Date: 06/20/18 Principal diagnosis: Morbid obesity Patient returns for evaluation. Weight loss has slowed down somewhat. 3 pound weight loss over the last 2 months. Slight increase in appetite however doesn' t believe he is eating anymore. Remains active. He is due for lab work at this time. Taking his antiacids every other day at this point. Objective - Vital Signs Vital signs: Vital Signs Temp 97.4 F L 06/20/18 13:16 Pulse 65 06/20/18 13:16 Resp BP 113/75 06/20/18 13:16 Pulse Ox Intake & Output 06/19/18 06/20/18 06/20/18 18:59 06:59 18:59 Weight 99.926 kg - Exam Abdomen: Soft, nontender, nondistended Assessment/Plan (1) Morbid obesity Narrative/Plan: Patient doing well at this time. We'll check labs at this time. Follow-up this August. Continue every other day antiacids. Plan: Date: 06/20/18 Initial Weight: 129.387 kg Initial BMI: 44.0 Current Weight: 99.926 kg Current BMI: 34.0 Type of Surgery: Total Volume in Band: Previous Volume: Volume Removed: Volume Added: Band Size:
== END | disposition home or self-care (01) ==
LOC: BARWHC3 12:57
PROVIDERS: ATTEND Surgery
DX: E66.01 Morbid (severe) obesity due to excess calories (principal); Z68.34 Body mass index [BMI] 34.0-34.9, adult
CPT/HCPCS: 97803; 99211

== ENCOUNTER → 2018-09-05 | Outpatient (CLI) | payer BC ==
[2018-09-05 13:07] VITALS: BP 127/81; PULSE 70; TEMP 97.5; BMI 32.8
--- NOTE | 2018-09-05 16:13 | P.BASOAP ---
Subjective Progress Note Date: 09/05/18 Principal diagnosis: Morbid obesity Patient returns for follow-up visit. Surgery last October. Patient has lost 7 pounds in the last 2 months. Patient has been taking his proton pump inhibitors somewhat randomly without heartburn symptoms. Good protein intake. Had a recent kidney stone once again. Labs from last visit reviewed. Objective - Vital Signs Vital signs: Vital Signs Temp 97.5 F L 09/05/18 12:59 Pulse 70 09/05/18 12:59 Resp BP 127/81 09/05/18 12:59 Pulse Ox Intake & Output 09/04/18 09/05/18 09/05/18 18:59 06:59 18:59 Weight 96.615 kg - Exam Abdomen: Soft, nontender, nondistended Assessment/Plan (1) Morbid obesity Narrative/Plan: We'll stop the patient's antiacids currently. Continue to work on protein intake. Follow-up in October for 1 year visit. We'll check one year labs at that time. Plan: Date: 09/05/18 Initial Weight: 129.387 kg Initial BMI: 44.0 Current Weight: 96.615 kg Current BMI: 32.8 Type of Surgery: Total Volume in Band: Previous Volume: Volume Removed: Volume Added: Band Size:
== END ==
LOC: BARWHC3 12:39
PROVIDERS: ATTEND Surgery
DX: E66.01 Morbid (severe) obesity due to excess calories (principal); Z68.32 Body mass index [BMI] 32.0-32.9, adult
CPT/HCPCS: 97803; 99211

== ENCOUNTER → 2018-10-31 | Outpatient (CLI) | payer BC ==
[2018-10-31 13:40] VITALS: BP 126/72; PULSE 63; TEMP 98.1; BMI 32.7
--- NOTE | 2018-10-31 15:36 | P.BASOAP ---
Subjective Progress Note Date: 10/31/18 Principal diagnosis: Morbid obesity Patient returns for one year follow-up. Doing well since last visit. No kidney stone issues since that time. He has only lost 1 pound since his last visit. No heartburn symptoms. Not taking antiacids. 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 Objective - Vital Signs Vital signs: Vital Signs Temp 98.1 F 10/31/18 13:31 Pulse 63 10/31/18 13:31 Resp BP 126/72 10/31/18 13:31 Pulse Ox Intake & Output 10/30/18 10/31/18 10/31/18 18:59 06:59 18:59 Weight 96.162 kg - Exam Abdomen: Soft, nontender, nondistended Assessment/Plan (1) Morbid obesity Narrative/Plan: Patient doing well at this time. Continue increasing activity. We'll decrease his calcium supplementation because of his history of kidney stones. Recent one year labs reviewed and these were normal. Follow-up 3 months. Plan: Date: 10/31/18 Initial Weight: 129.387 kg Initial BMI: 44.0 Current Weight: 96.162 kg Current BMI: 32.7 Type of Surgery: Total Volume in Band: Previous Volume: Volume Removed: Volume Added: Band Size:
== END ==
LOC: BARWHC3 13:07
PROVIDERS: ATTEND Surgery
DX: E66.01 Morbid (severe) obesity due to excess calories (principal); Z68.32 Body mass index [BMI] 32.0-32.9, adult
CPT/HCPCS: 97803; 99211

== ENCOUNTER → 2019-01-16 | Outpatient (CLI) | payer BC ==
[2019-01-16 13:20] VITALS: BP 119/76; PULSE 52; TEMP 97.2; BMI 32.1
--- NOTE | 2019-01-16 15:13 | P.BASOAP ---
Subjective Progress Note Date: 01/16/19 Principal diagnosis: Morbid obesity Patient returns today for reevaluation. He was last seen in October. He has lost 4 pounds since that time. He is walking more lately. Had labs checked in October which was normal. He did have an episode of vertigo recently resulted dry heaves. Also interested in possible panniculectomy had some point. Objective - Vital Signs Vital signs: Vital Signs Temp 97.2 F L 01/16/19 13:15 Pulse 52 L 01/16/19 13:15 Resp BP 119/76 01/16/19 13:15 Pulse Ox Intake & Output 01/15/19 01/16/19 01/16/19 18:59 06:59 18:59 Weight 94.347 kg - Exam Abdomen: Soft, nontender, nondistended Assessment/Plan (1) Morbid obesity Narrative/Plan: Patient doing well at this time. Still demonstrating slow weight loss. Continue dietary and exercise regimen. Continue workup of the patient's vertigo. Follow-up in June. We'll check labs at that time. Plan: Date: 01/16/19 Initial Weight: 129.387 kg Initial BMI: 44.0 Current Weight: 94.347 kg Current BMI: 32.1 Type of Surgery: Total Volume in Band: Previous Volume: Volume Removed: Volume Added: Band Size:
== END ==
LOC: BARWHC3 12:39
PROVIDERS: ATTEND Surgery
DX: E66.01 Morbid (severe) obesity due to excess calories (principal); Z68.32 Body mass index [BMI] 32.0-32.9, adult
CPT/HCPCS: 99211

== ENCOUNTER → 2019-07-17 | Outpatient (CLI) | payer BC ==
[2019-07-17 13:22] VITALS: BP 125/80; PULSE 65; RESP 16; TEMP 97.5; BMI 34.4
--- NOTE | 2019-07-17 16:38 | P.BASOAP ---
Subjective Progress Note Date: 07/17/19 Principal diagnosis: Morbid obesity Patient returns today for reevaluation. Last seen in January. Weight has increased by 15 pounds. He states this is related to decreased activity as he had been farming a lot in the fall and exercising much less. Initial sleeve surgery and October 2013. Otherwise doing well. Complaining of mild irritation beneath his pannus fold. Interested in plastic surgery evaluation. He is due for lab work. Objective - Vital Signs Vital signs: Vital Signs Temp 97.5 F L 07/17/19 13:20 Pulse 65 07/17/19 13:20 Resp 16 07/17/19 13:20 BP 125/80 07/17/19 13:20 Pulse Ox Intake & Output 07/16/19 07/17/19 07/17/19 18:59 06:59 18:59 Weight 101.151 kg - Exam Abdomen: Soft, nontender, nondistended Assessment/Plan (1) Morbid obesity Narrative/Plan: Patient doing well postoperative. Some panniculitis related to skin irritation. We will provide patient with plastic surgery options. We'll order labs to be drawn at the time of his next PCP evaluation. Plan follow-up in 6 months. Continue increasing exercise level. Monitor weight loss. Plan: Date: 07/17/19 Initial Weight: 129.387 kg Initial BMI: 44.0 Current Weight: 101.151 kg Current BMI: 34.4 Type of Surgery: Vertical Sleeve Gastrectomy Total Volume in Band: Previous Volume: Volume Removed: Volume Added: Band Size:
== END | disposition home or self-care (01) ==
LOC: BARWHC3 12:47
PROVIDERS: ATTEND Surgery
DX: E66.01 Morbid (severe) obesity due to excess calories (principal); Z68.34 Body mass index [BMI] 34.0-34.9, adult; L98.7 Excessive and redundant skin and subcutaneous tissue
CPT/HCPCS: 99211

== ENCOUNTER → 2020-07-22 | Outpatient (CLI) | payer BC ==
[2020-07-22 14:10] VITALS: BP 118/76; PULSE 66; RESP 16; TEMP 97.3; BMI 36.2
--- NOTE | 2020-07-22 15:29 | P.BASOAP ---
Subjective Progress Note Date: 07/22/20 Principal diagnosis: Morbid obesity Patient returns for reevaluation. Was last seen 1 year ago. Weight has increased by 12 pounds. He has been exercising more this past year. Restriction from prior gastrectomy seems the same. Denies heartburn, no nausea or vomiting. Patient never had his labs drawn that were ordered last visit. Patient also has decided against proceeding with any plastic surgery. Objective - Vital Signs Vital signs: Vital Signs Temp 97.3 F L 07/22/20 14:06 Pulse 66 07/22/20 14:06 Resp 16 07/22/20 14:06 BP 118/76 07/22/20 14:06 Pulse Ox Intake & Output 07/21/20 07/22/20 07/22/20 18:59 06:59 18:59 Weight 106.594 kg - Exam Abdomen: Soft, nontender, nondistended Assessment/Plan (1) Morbid obesity Narrative/Plan: Overall patient doing well. Continue dietary and exercise regimen. Annual labs ordered. He says he will have these drawn when he sees his primary care physician in a few weeks. Recently had a media monitor. Plan: Date: 07/22/20 Initial Weight: 129.387 kg Initial BMI: 44.0 Current Weight: 106.594 kg Current BMI: 36.2 Type of Surgery: Total Volume in Band: Previous Volume: Volume Removed: Volume Added: Band Size:
== END | disposition home or self-care (01) ==
LOC: BARWHC3 13:43
PROVIDERS: ATTEND Surgery
DX: E66.01 Morbid (severe) obesity due to excess calories (principal); Z68.36 Body mass index [BMI] 36.0-36.9, adult
CPT/HCPCS: 99211